=== PATIENT | female | born 1970 | race Two or more races ===

== ENCOUNTER 2020-05-04 08:07 | Outpatient (CLI) | payer OTHER ==
[~2020-05-04 08:07] MED LIST: TOPROL XL25 MG
== END 2020-05-04 08:53 | disposition home or self-care (01) ==
LOC: TOM 08:07
PROVIDERS: ATTEND Internal Medicine Gastroenterology
DX: K56.600 Partial intestinal obstruction, unspecified as to cause (principal); K57.30 Diverticulosis of large intestine without perforation or abscess without bleeding

== ENCOUNTER 2022-12-19 10:00 | Inpatient (IN) | payer OTHER ==
[~2022-12-19] VITALS: Ht 160 cm; Wt 102.1 kg
[~2022-12-19 10:00] MED LIST changes: -TOPROL XL25 MG; +TOPROL XL25 MG PO
[2022-12-24] MEDS ORDERED: METOPROLOL TART50 MG (08:46)
[2022-12-27] MEDS ORDERED: HYOSCYAMINE0.125 M1 SL (16:16)
== END 2022-12-27 16:57 | disposition home or self-care (01) | DRG 389 ==
LOC: SURH 12-24 06:36 → O/R 12-24 06:36 → SURG 12-24 10:00 → SURH 12-24 13:29 → SURG 12-24 17:30 → SURH 12-27 16:57
PROVIDERS: ADMIT Surgery; ATTEND Surgery
DX: K56.49 Other impaction of intestine (principal); K57.20 Diverticulitis of large intestine with perforation and abscess without bleeding; N73.6 Female pelvic peritoneal adhesions (postinfective)